=== PATIENT | female | born 1965 | race Caucasian/White ===

== ENCOUNTER 2017-01-07 09:16 | Day surgery (SDC) | payer MEDICAID ==
[2017-01-07] VITALS (8 sets, daily range): BP systolic 113–125; BP diastolic 56–78; PULSE 78–102; RESP 11–18; Ht 170.2 cm; Wt 97.0 kg
[~2017-01-07] VITALS: Ht 170.2 cm; Wt 97.0 kg
[2017-01-07] MEDS ORDERED: ASCO500S2 PO (09:33)
[2017-01-07] MEDS ORDERED: ASC250 PO (09:34)
[2017-01-07] MEDS ORDERED: MICO1POW MC (09:41)
[2017-01-07] MEDS ORDERED: CLOT1L10 TOP (09:43)
[2017-01-07] MEDS ORDERED: MINE3.5O31 BOTH EYES ×2 (09:45)
[2017-01-07] MEDS ORDERED: FER325 PO (09:46)
[2017-01-07] MEDS ORDERED: MULT-371 PO (09:46)
[2017-01-07 10:27] LABS: BASOPHILS % 0.5 % (0.0-2.0); EOSINOPHILS # 0.2 10^3/ul (0.0-0.5); EOSINOPHILS % 3.4 % (0.0-7.0); HEMATOCRIT 30.8 % (37.0-47.0); HEMOGLOBIN 9.9 g/dl (12.0-16.0); LYMPHOCYTES # 1.5 10^3/ul (0.8-2.9); LYMPHOCYTES % 21.2 % (15.0-51.0); MEAN CORPUSCULAR HEMOGLOBIN 24.6 pg (29.0-33.0); MEAN CORPUSCULAR HGB CONC 32.1 g/dl (32.0-37.0); MEAN CORPUSCULAR VOLUME 76.4 fl (82.0-101.0); MEAN PLATELET VOLUME 7.9 fl (7.4-10.4); MONOCYTE # 0.4 10^3/ul (0.3-0.9); MONOCYTES % 5.8 % (0.0-11.0); NEUTROPHIL # 4.7 10^3/ul (1.6-7.5); NEUTROPHILS % 69.1 % (39.0-77.0); PLATELET COUNT 360 10^3/UL (140-440); RED BLOOD COUNT 4.03 10^6/ul (4.20-5.40); RED CELL DISTRIBUTION WIDTH 16.2 % (11.5-14.5); UNCORRECTED WBC 6.9 10^3/ul (4.8-10.8); WHITE BLOOD COUNT 6.9 10^3/ul (4.8-10.8)
[2017-01-07 10:31] LABS: CONDITION 1; LH ANALYZER COMMENTS 1
[2017-01-07 10:40] LABS: INR 0.97; PARTIAL THROMBOPLASTIN TIME 27.9 Sec (25.0-35.0); PROTIME 12.9 Sec (12.2-14.2)
[2017-01-07] MEDS ORDERED: MIDAZOLAM 1 MG/ML 2 ML INJ ONE (12:00)
[2017-01-07] MEDS ORDERED: PROPOFOL 20 ML ONE (12:00)
[2017-01-07] MEDS ORDERED: LIDOCAINE 2% (SDV) 5 ML INJ ONE (12:00)
[2017-01-07] MEDS ORDERED: CEFAZOLIN 1 GM INJ ONE (12:08)
[2017-01-07] MEDS ORDERED: ONDANSETRON 4 MG INJ ONE (12:12)
[2017-01-07] MEDS ORDERED: DEXAMETHASONE 4 MG/ML 1 ML INJ ONE (12:13)
[2017-01-07] MEDS ORDERED: FAMOTIDINE 20 MG INJ ONE (12:16)
[2017-01-07] MEDS ORDERED: FENTAnyl 50 MCG/ML VIAL ONE (12:17)
[2017-01-07] MEDS ORDERED: FENTAnyl 50 MCG/ML VIAL IV PRN (12:30)
[2017-01-07] MEDS ORDERED: HYDROmorphONE (0.2 MG/ML) 10ML SYG IV PRN (12:30)
[2017-01-07] MEDS ORDERED: PROCHLORPERAZINE 10 MG INJ IV PRN (12:30)
[2017-01-07] MEDS ORDERED: ONDANSETRON 4 MG INJ IV PRN (12:30)
[2017-01-07] MEDS ORDERED: DIPHENHYDRAMINE 50 MG INJ IV PRN (12:30)
[2017-01-07] MEDS ORDERED: MEPERIDINE 25 MG INJ IV PRN (12:30)
[2017-01-07] MEDS ORDERED: OXYCODONE/ACETAMINOPHEN (5/325) TAB PO PRN (12:30)
[2017-01-07] MEDS ORDERED: EPHEDrine SULFATE 50 MG/5 ML SYG ONE (13:16)
--- NOTE | 2017-01-07 16:23 | OPR ---
DATE OF OPERATION: 01/07/2017 OPERATION PERFORMED: 1. Examination under anesthesia. 2. Cervical myomectomy. 3. Dilatation, curettage and hysteroscopy. PREOPERATIVE DIAGNOSIS: Persistent heavy bleeding the last 2 months and pelvic pain, obesity, tired ness and anemia. POSTOPERATIVE DIAGNOSIS: 1. Pelvic adhesions, enlarged uterus. 2. Cervical fibroid. 3. Cervical uterine deformity. ANESTHESIA: General. SURGEON: JACQUE WILSON MD. ESTIMATED BLOOD LOSS: Minimal. PROCEDURE: After patient was taken to operating room and placed in supine position, general anesthe anthony was induced by anesthesiologist. Then she was placed in lithotomy position for procedure of thi s kind, prepped and draped in usual manner. Examination under anesthesia revealed external genitali a was multiparous and vagina with second degree rectocele. Cervix was fixed behind the symphysis pu bis toward the right side having an intramural fibroid behind the cervix. The uterus was 4th degree retroverted, fixed inside the pelvic canal and mobilization was tried, but was not successful. The assumption was made that there is a severe type of pelvic adhesion that does not allow the uterus t o become mobilized. The uterus was about 10 weeks' size, very bulky. After insertion of a speculum , which was very hard because of prolapse of rectocele, it would not allowed the heavy weighted spec ulum to be placed inside the vagina. Therefore, a right angle was used and was held by executive sales assistant as well as for finding the cervix which was behind the symphysis pubis, very fixed and could not be mo bilized. Decision was made to do with leiomyomectomy, which was located in posterior intramural sit e of the cervix. After removal, the cervix was mobilized manually with some difficulty. The site o f the myomectomy was sutured. Uterus was sounded to depth of 10.5 cm. Hysteroscopy was done which revealed atrophic endometrium and then uterus was curetted and minimal amount of tissue was obtained . Cavity was felt kind of dilated and enlarged and there was no projection of tissue inside. All t he instruments removed. Rectovaginal exam was done which revealed above findings that revealed four th degree retroverted, fixed bulky uterus and there was no other adnexal masses. After patient was placed in supine position and transferred to the recovery room, sponge count and instrument count wa s correct. Her vital signs were reported within normal limit throughout the procedure. Dictated By: JACQUE WILSON MD PM/ROSA Conf#: [id number] DID#: [id number]
--- NOTE | 2017-01-09 11:45 | RADRPT ---
Vent Rate: 87 bpm RR Interval: 0 msec OK Interval: 220 msec QRS Duration: 84 msec QT Interval: 382 msec QTC Interval: 459 msec P-R-T [place]: 57 - 67 - 40 degrees Sinus rhythm with 1st degree AV block Otherwise normal ECG Electronically Signed By: Judson Cotto [id number]
== END 2017-01-07 15:30 | disposition home or self-care (01) ==
LOC: SDS 09:16
PROVIDERS: ATTEND Obstetrics & Gynecology
DX: D26.0 Other benign neoplasm of cervix uteri (principal); E66.9 Obesity, unspecified; Z68.33 Body mass index [BMI] 33.0-33.9, adult
CPT/HCPCS: 58558; 82947; 84703; 85025; 85610; 85730; 88305; 93005; J0690; J1100; J2175; J2250; J2405; J3010; Z7512; Z7610; 88341; 88342